=== PATIENT | male | born 1980 ===

== ENCOUNTER 2021-06-17 12:44 | Outpatient (CLI) | payer OTHER ==
[2021-06-18 13:56] LABS: SARS-CoV-2 PCR by NAA Not Detected (NotDetected)
== END 2021-06-17 12:45 | disposition home or self-care (01) ==
LOC: CSHLAB 12:44
PROVIDERS: ATTEND Chiropractor
DX: Z20.822 Contact with and (suspected) exposure to COVID-19 (principal); R06.02 Shortness of breath
CPT/HCPCS: U0003; U0005